=== PATIENT | female | born 1930 | race Caucasian/White ===

== ENCOUNTER 2016-06-11 05:38 | Inpatient (IN) | payer OTHER, MEDICARE ==
[~2016-06-11] VITALS: Ht 157.5 cm; Wt 61.4 kg
[~2016-06-11 05:38] MED LIST: AMLODIPINE BESYL5 MG PO; LEVOTHYROXINE88 MCG PO; PRAVASTATIN SOD80 MG PO
[2016-06-11 06:01] LABS: POINT-OF-CARE METER ID UU14100415
[2016-06-11 06:03] LABS: CREATININE 0.7 mg/dL (0.6-1.3); POTASSIUM 4.8 mEq/L (3.7-5.4)
[2016-06-11 06:25] LABS: HEMATOCRIT 39.9 % (36.0-46.0); MCH 32.1 PG (29.0-34.0); MCHC 33.6 G/DL (30.0-36.0); MCV 95.7 FL (83-99); MEAN PLAT.VOLUME 11.8 uM^3 (9.5-12.4); PLATELET COUNT 211 K/uL (156-360); RBC DIS.WIDTH-CV 12.3 % (11.8-14.6); RBC DIS.WIDTH-SD 42.1 % (39-53); RED BLOOD COUNT 4.17 M/uL (3.80-5.20); WHITE BLOOD COUNT 10.5 K/uL (4.1-10.2)
[2016-06-11 06:33] LABS: CARBON DIOXIDE (BICARBONATE) 32.8 MEQ/L (20-31)
[2016-06-11 06:36] LABS: CHLORIDE 107 mEq/L (99-109); POTASSIUM 4.6 mEq/L (3.7-5.4); SODIUM 145 mEq/L (136-147)
[2016-06-11 06:39] LABS: GLUCOSE 94 mg/dL (70-99)
[2016-06-11 06:40] LABS: ANION GAP 13 MEQ/L (2-14)
[2016-06-11 06:41] LABS: TOTAL BILIRUBIN 0.9 mg/dL (0.0-1.0)
[2016-06-11 06:42] LABS: ALKALINE PHOSPHATASE 58 IU/L (3-129)
[2016-06-11 06:43] LABS: GFR ESTIMATE (CALCULATED) > 59 mL/min/
[2016-06-11 06:44] LABS: DIRECT BILIRUBIN 0.3 mg/dL (0.0-0.3); UREA NITROGEN (BUN) 20 mg/dL (9-23)
[2016-06-11 06:45] LABS: TROP-I INTERPRETATION NEGATIVE; TROPONIN-I < 0.01 ng/mL (0.0-0.30)
[2016-06-11 06:46] LABS: LIPASE 55 U/L (1.0-51.0)
[2016-06-11 07:18] LABS: ADD MIUA? YES; BILIRUBIN NEGATIVE; BLOOD NEGATIVE; COLOR YELLOW ((YELLOW)); GLUCOSE (STRIP) NEGATIVE; KETONES NEGATIVE; LEUKOCYTES SMALL; NITRITE NEGATIVE; PROTEIN (STRIP) NEGATIVE; SPECIFIC GRAVITY 1.021 (1.000-1.030)
[2016-06-11 07:29] LABS: BACTERIA NONE SEEN /HPF; CASTS NONE SEEN /LPF; CRYSTALS NONE SEEN; EPITHELIAL CELLS 1+ /HPF; MUCUS NONE SEEN /LPF; PATHOLOGICAL CAST NONE SEEN; RED BLOOD CELLS 0-5 /HPF (0-5); SMALL ROUND CELL NONE SEEN; WHITE BLOOD CELLS 0-5 /HPF (0-5); YEAST-LIKE CELL NONE SEEN
[2016-06-11] MEDS ORDERED: LISINOPRIL20 MG PO (08:22)
[2016-06-11] MEDS ORDERED: HUMALOG100 UNIT/1 SC ×2 (08:23→08:24)
[2016-06-11] MEDS ORDERED: CENTRUM SILVER1 EAC3 PO (08:24)
[2016-06-11] MEDS ORDERED: LEVEMIR100 UNIT/2 SC (08:24)
[2016-06-11] MEDS ORDERED: ISTALOL5 ML BOTH EYES (08:25)
[2016-06-11 09:05] LABS: POINT-OF-CARE METER ID UU14100415
[2016-06-11 10:47] LABS: Estimated Average Glucose 174 mg/dL (70-123); HEMOGLOBIN A1c (GLYCOHEMOGLOB) 7.7 % HGB (Below 5.7)
[2016-06-11 11:15] VITALS: BP 136/63
[2016-06-11 12:00] LABS: POINT-OF-CARE METER ID UU13113781
[2016-06-11 13:06] LABS: TROP-I INTERPRETATION NEGATIVE; TROPONIN-I 0.01 ng/mL (0.0-0.30)
[2016-06-11 16:11] LABS: POINT-OF-CARE METER ID UU14174216
[2016-06-11 20:00] VITALS: BP 119/58
[2016-06-12] VITALS (7 sets, daily range): BP systolic 103–156; BP diastolic 48–67
[2016-06-12 07:20] LABS: HEMATOCRIT 34.6 % (36.0-46.0); MCH 31.1 PG (29.0-34.0); MCHC 32.7 G/DL (30.0-36.0); MCV 95.3 FL (83-99); MEAN PLAT.VOLUME 11.5 uM^3 (9.5-12.4); PLATELET COUNT 191 K/uL (156-360); RBC DIS.WIDTH-CV 12.7 % (11.8-14.6); RBC DIS.WIDTH-SD 44.8 % (39-53); RED BLOOD COUNT 3.63 M/uL (3.80-5.20)
[2016-06-12 07:21] LABS: WHITE BLOOD COUNT 6.1 K/uL (4.1-10.2)
[2016-06-12 07:30] LABS: ANION GAP 7 MEQ/L (2-14); CHLORIDE 112 MEQ/L (99-109); GFR ESTIMATE (CALCULATED) > 59 mL/min/; GLUCOSE 129 mg/dL (70-99); POTASSIUM 4.4 MEQ/L (3.7-5.4); SAMPLE HEMOLYSIS CHECK 0; SAMPLE ICTERIC CHECK 0; SAMPLE LIPEMIA CHECK 0; SODIUM 144 MEQ/L (136-147); UREA NITROGEN (BUN) 14 mg/dL (9-23)
[2016-06-12 21:34] LABS: POINT-OF-CARE METER ID UU14174216
[2016-06-13 03:22] VITALS: BP 138/59
[2016-06-13 06:32] LABS: BASOPHIL COUNT 0.1 K/uL (0-0.1); EOSINOPHIL (%) 9.7 % (0-5); EOSINOPHIL COUNT 0.7 K/uL (0-0.3); HEMATOCRIT 33.7 % (36.0-46.0); IMMATURE GRANULOCYTE (%) 0.1 % (0.0-0.7); LYMPHOCYTE COUNT 1.4 K/uL (1.0-2.8); MCH 31.8 PG (29.0-34.0); MCHC 33.8 G/DL (30.0-36.0); MCV 93.9 FL (83-99); MEAN PLAT.VOLUME 11.5 uM^3 (9.5-12.4); MONOCYTE COUNT 0.9 K/uL (0-0.8); NEUTROPHIL (%) 54.7 % (45-76); NEUTROPHIL COUNT 3.7 K/uL (1.8-6.4); PLATELET COUNT 179 K/uL (156-360); RBC DIS.WIDTH-CV 12.6 % (11.8-14.6); RBC DIS.WIDTH-SD 43.3 % (39-53); RED BLOOD COUNT 3.59 M/uL (3.80-5.20); WHITE BLOOD COUNT 6.7 K/uL (4.1-10.2)
[2016-06-13 06:51] LABS: ANION GAP 6 MEQ/L (2-14); CHLORIDE 110 MEQ/L (99-109); GFR ESTIMATE (CALCULATED) > 59 mL/min/; MAGNESIUM 2.1 mg/dl (1.3-2.7); POTASSIUM 3.9 MEQ/L (3.7-5.4); SAMPLE HEMOLYSIS CHECK 0; SAMPLE ICTERIC CHECK 0; SAMPLE LIPEMIA CHECK 0; SODIUM 145 MEQ/L (136-147); UREA NITROGEN (BUN) 13 mg/dL (9-23)
[2016-06-13 06:53] LABS: GLUCOSE 41 mg/dL (70-99)
[2016-06-13 07:00] VITALS: BP 125/63
[2016-06-13 08:33] LABS: POINT-OF-CARE METER ID UU13113698; POINT-OF-CARE USER ID NUTSLF44
[2016-06-13 11:14] LABS: POINT-OF-CARE USER ID NUTSLF44
[2016-06-13 11:15] VITALS: BP 132/68
[2016-06-13 14:44] VITALS: BP 147/64
[2016-06-13 20:00] VITALS: BP 126/61
[2016-06-13 21:09] LABS: POINT-OF-CARE METER ID UU13113698
[2016-06-13 23:30] VITALS: BP 117/65
[2016-06-14 03:10] VITALS: BP 117/46
[2016-06-14 07:56] LABS: POINT-OF-CARE METER ID UU13113698
[2016-06-14 09:00] VITALS: BP 133/59
[2016-06-14] MEDS ORDERED: LEVEMIR100 UNIT/2 SC ×2 (12:13)
[2016-06-14 12:20] VITALS: BP 132/58
[2016-06-14] MEDS ORDERED: HUMALOG100 UNIT/1 SC ×2 (14:15)
[2016-06-14 15:06] LABS: POINT-OF-CARE METER ID UU14174216
== END 2016-06-14 15:50 | disposition home or self-care (01) | DRG 872 ==
LOC: EME → EDBD 05:38 → EME 05:38 → EDOF 09:02 → 4EAST 09:02 → EDOF 09:11 → 4EAST 10:49
PROVIDERS: Emergency Medicine; Internal Medicine; Student in an Organized Health Care Education/Training Program
DX: A41.9 Sepsis, unspecified organism (principal); E87.2 Acidosis; I27.2 Other secondary pulmonary hypertension; E11.9 Type 2 diabetes mellitus without complications; I10 Essential (primary) hypertension; E78.5 Hyperlipidemia, unspecified; Z96.659 Presence of unspecified artificial knee joint; I95.9 Hypotension, unspecified; I36.1 Nonrheumatic tricuspid (valve) insufficiency; E03.9 Hypothyroidism, unspecified; I35.0 Nonrheumatic aortic (valve) stenosis; I65.23 Occlusion and stenosis of bilateral carotid arteries; Z95.0 Presence of cardiac pacemaker; Z79.4 Long term (current) use of insulin
CPT/HCPCS: 70450; 71010; 78582; 80047; 80048; 80076; 81003; 82803; 82948; 83036; 83605; 83690; 83735; 83880; 84443; 84484; 85025; 85027; 87040; 87077; 87086; 87186; 93005; 93306; 93880; 95819; 99281; 99285; A9540; A9567; J1815; J2543; J3370; J7030; J7050

== ENCOUNTER 2016-06-18 16:32 | Emergency (ER) | payer OTHER, MEDICARE ==
[~2016-06-18] VITALS: Ht 157.5 cm; Wt 59.6 kg
[~2016-06-18 16:32] MED LIST changes: +CENTRUM SILVER1 EAC3 PO; +HUMALOG100 UNIT/1 SC; +ISTALOL5 ML BOTH EYES; +LEVEMIR100 UNIT/2 SC; +LISINOPRIL20 MG PO
[2016-06-18 16:52] LABS: POINT-OF-CARE METER ID UU13113702
[2016-06-18 17:09] LABS: HEMATOCRIT 38.6 % (36.0-46.0); MCH 32.3 PG (29.0-34.0); MCHC 33.7 G/DL (30.0-36.0); MCV 95.8 FL (83-99); MEAN PLAT.VOLUME 11.5 uM^3 (9.5-12.4); PLATELET COUNT 213 K/uL (156-360); RBC DIS.WIDTH-CV 12.5 % (11.8-14.6); RBC DIS.WIDTH-SD 42.4 % (39-53); RED BLOOD COUNT 4.03 M/uL (3.80-5.20); WHITE BLOOD COUNT 6.4 K/uL (4.1-10.2)
[2016-06-18 17:19] LABS: CHLORIDE 107 mEq/L (99-109); POTASSIUM 4.5 mEq/L (3.7-5.4); SODIUM 143 mEq/L (136-147)
[2016-06-18 17:20] LABS: GLUCOSE 109 mg/dL (70-99)
[2016-06-18 17:22] LABS: ANION GAP 7 MEQ/L (2-14)
[2016-06-18 17:24] LABS: GFR ESTIMATE (CALCULATED) > 59 mL/min/
[2016-06-18 17:25] LABS: UREA NITROGEN (BUN) 19 mg/dL (9-23)
[2016-06-18 17:42] LABS: POINT-OF-CARE METER ID UU13113702
[2016-06-18 18:07] LABS: ADD MIUA? NO; BILIRUBIN NEGATIVE; BLOOD NEGATIVE; COLOR YELLOW ((YELLOW)); GLUCOSE (STRIP) NEGATIVE; KETONES NEGATIVE; LEUKOCYTES NEGATIVE; NITRITE NEGATIVE; PROTEIN (STRIP) NEGATIVE; SPECIFIC GRAVITY 1.009 (1.000-1.030); UCUL ADDED? NO; UROBILINOGEN 0.2 MG/DL (0.2-1.0)
[2016-06-18 19:21] LABS: POINT-OF-CARE METER ID UU13113702
[2016-06-18 20:00] VITALS: BP 135/90
== END 2016-06-18 20:01 | disposition home or self-care (01) ==
LOC: EME 16:32
PROVIDERS: Emergency Medicine
DX: E11.649 Type 2 diabetes mellitus with hypoglycemia without coma (principal); I10 Essential (primary) hypertension
CPT/HCPCS: 80048; 81003; 82948; 85027; 93005; 99281; 99285